=== PATIENT | male | born 1950 | race Caucasian/White ===

== ENCOUNTER → 2020-06-07 | Outpatient (CLI) | payer MEDICARE, SELFPAY ==
--- NOTE | 2020-06-07 | TISS_PTH ---
PATIENT: RUPINDER BIGGS LOC: [facility] U#:[id number] AGE/SX: 70/M ROOM: RE06/07/[address]: Dr. Bobby Kilgore DDS : 1950 BED: DIS: 06/07/2020 SPEC #: [id number] RECD: 06/07/20 09:43 STATUS: PHIL REToo #: [id number] THEE: 06/07/20 00:[address]: Bobby Kilgore DEPT: SURGICAL PATHOLOGY RECD BY: Noel Barksdale ENTERED: 06/07/20 13:43 SP TYPE: Tissue Bx OTHR DR: Yissel [facility] Phys Tissues: Mandible, NOS Procedures: Surgery Specimen Level IV Comments: Called Dr. Kilgore's office and spoke with Deb to verify patient's ID CC 06/07/20 at 1408 HEADER OPERATION: Left mandible biopsy PRE-OP DIAGNOSIS: Odontogenic neoplasm / cyst TISSUE SUBMITTED: Tissue associated with impacted tooth MICROSCOPIC DIAGNOSIS Tissue associated with impacted tooth, biopsy: Consistent with odontogenic keratocyst, inflamed. AM:eze 06/09/20 MICROSCOPIC DESCRIPTION Slides are reviewed. GROSS DESCRIPTION Received is one container labeled with the patient's name and not further designated. The specimen consists of multiple irregular fragments of pink-bai soft tissue that in aggregate measure 2.6 x 2.2 x 0.2 cm. The specimen is totally submitted in one cassette. / AM:eze 06/07/20 TC:3 CPT: 66080
== END | disposition home or self-care (01) ==
LOC: LABSPEC 09:50
PROVIDERS: Referring Provider Dentist Oral and Maxillofacial Surgery; Visit Provider Dentist Oral and Maxillofacial Surgery
DX: K09.0 Developmental odontogenic cysts (principal)
CPT/HCPCS: 88305